=== PATIENT | male | born 1950 | race Caucasian/White ===

== ENCOUNTER 2016-12-18 11:29 | Inpatient (IN) | payer MEDICARE, BC ==
[~2016-12-18] VITALS: Ht 177.8 cm; Wt 111.0 kg
[2016-12-18] VITALS (12 sets, daily range): BP systolic 111–136; BP diastolic 50–98
[~2016-12-18 11:29] MED LIST: ALLO100T64 PO; EPINEPHRINE SYRINGE 0.1 MG/ML, 10ML ONE; GABA100C PO; HYDR-3241 PO; HYDR25TA6 PO; LISI5TAB7 PO; METF10002 PO; SITA50TA PO
[2016-12-18] MEDS ORDERED: PROPOFOL 100 ML IV ONE ×2 (11:32→18:50)
[2016-12-18] MEDS ORDERED: MIDAZOLAM 1 MG/ML, 5ML ONE ×2 (11:38→13:17)
[2016-12-18] MEDS ORDERED: KETAMINE 10 MG/ML, 20ML ONE (11:41)
[2016-12-18 11:55] LABS: ABG COLLECTION SITE RIGHT RADIAL; COLLATERAL CIRCULATION TESTING NORMAL
[2016-12-18] MEDS ORDERED: FENTANYL PF 2,500 MCG in SODIUM CHLORIDE 0.9% 200 ML IV PRN ×2 (12:00→18:00)
[2016-12-18] MEDS ORDERED: PROPOFOL 100 ML IV PRN (12:00)
[2016-12-18] MEDS ORDERED: KETAMINE 10 MG/ML, 20ML IV ONE (12:00)
[2016-12-18] MEDS ORDERED: PLEASE ENTER HEIGHT AND WEIGHT MC SCH (12:00)
[2016-12-18] MEDS ORDERED: SODIUM CHLORIDE FLUSH 10ML SYR IVF ONE (12:00)
[2016-12-18] MEDS ORDERED: NOREPINEPHRINE 4 MG in SODIUM CHLORIDE 0.9% 246 ML IV PRN (12:00)
[2016-12-18 12:06] LABS: BLOOD UREA NITROGEN 57 mg/dL (7-18)
[2016-12-18] MEDS ORDERED: FENTANYL PF 100 MCG/2ML ONE (12:13)
[2016-12-18] MEDS ORDERED: EPINEPHRINE 1 MG/ML, 1ML IVPush ONE ×3 (12:30→13:00)
[2016-12-18] MEDS ORDERED: BACITRACIN 50,000 UNIT ONE (12:34)
[2016-12-18] MEDS ORDERED: PROTAMINE SULFATE 10 MG/ML, 5ML ONE (12:34)
[2016-12-18] MEDS ORDERED: THROMBIN 20,000 UNIT VIAL TP ONE (12:34)
[2016-12-18] MEDS ORDERED: BUPIVACAINE/PF-EPI 0.5% 1:200K ONE (12:34)
[2016-12-18] MEDS ORDERED: HEPARIN 1,000 UNITS/ML, 10ML ONE ×2 (12:34→13:16)
[2016-12-18] MEDS ORDERED: PAPAVERINE 30 MG/ML, 2ML ONE (12:35)
[2016-12-18 12:42] LABS: DIFF TOTAL CELLS COUNTED 100 CELL DIFF
[2016-12-18 12:43] LABS: ANISOCYTOSIS 1+; MICROCYTOSIS 1+; VERIFY COUNTS? YES
[2016-12-18 12:45] LABS: OVALOCYTES 1+; POLYCHROMASIA 1+
[2016-12-18 12:46] LABS: LARGE PLATELETS 1+
[2016-12-18] MEDS: PHENYLEPHRINE 10 MG in SODIUM CHLORIDE 0.9% 249 ML IV PRN ×2 (12:48→18:21)
[2016-12-18] MEDS ORDERED: NOREPINEPHRINE 1 MG/ML, 4ML ONE ×2 (12:53→18:04)
[2016-12-18] MEDS ORDERED: ALBUMIN HUMAN 5% 500 ML ONE (12:53)
[2016-12-18] MEDS ORDERED: FENTANYL PF 250 MCG/5ML ONE (13:21)
[2016-12-18] MEDS ORDERED: FENTANYL PF 100 MCG/2ML IVPush PRN (13:30)
[2016-12-18] MEDS ORDERED: MIDAZOLAM 1 MG/ML, 5ML IVPush ONE (13:30)
[2016-12-18] MEDS ORDERED: FURO-93 PO (13:31)
[2016-12-18] MEDS ORDERED: FENO160T PO (13:31)
[2016-12-18] MEDS ORDERED: ALLO300T PO (13:31)
[2016-12-18] MEDS ORDERED: LISI-170 PO (13:31)
[2016-12-18] MEDS ORDERED: HYDR-3138 PO (13:31)
[2016-12-18] MEDS ORDERED: ASPI-496 PO (13:31)
[2016-12-18] MEDS ORDERED: IPRA12.9 INH (13:31)
[2016-12-18] MEDS ORDERED: INSULIN SINGLE DOSE, ER SQ-INSULIN ONE (13:44)
[2016-12-18] MEDS ORDERED: SODIUM CHLORIDE 0.9% 1,000ML IVBOLUS ONE (14:00)
[2016-12-18] MEDS ORDERED: LABETALOL 5MG/ML 40ML VIAL IVPush PRN (15:00)
[2016-12-18] MEDS: CEFAZOLIN PMX 2GM/50ML 50 ML IVPB SCH ×2 (16:20→23:09)
[2016-12-18] MEDS: LACTATED RINGERS 1,000 ML IV SCH (16:21)
[2016-12-18] MEDS: FAMOTIDINE 20 MG/2 ML IVPush SCH (16:22)
[2016-12-18] MEDS ORDERED: PHENYLEPHRINE 20 MG in SODIUM CHLORIDE 0.9% 248 ML IV PRN (22:03)
[2016-12-18] MEDS ORDERED: SENNA/DOCUSATE TABLET NG PRN (22:30)
[2016-12-18] MEDS ORDERED: PHARMACY MAY ADJ FOR RENAL FX MC SCH (22:30)
[2016-12-18] MEDS ORDERED: SENNOSIDES 8.8 MG/5 ML ORAL SOL NG PRN (22:30)
[2016-12-18] MEDS ORDERED: DEXTROSE 4 GM TAB.CHEW PO PRN (22:30)
[2016-12-18] MEDS ORDERED: GLUCAGON 1 MG IM PRN (22:30)
[2016-12-18] MEDS ORDERED: BISACODYL 10 MG SUPP PR PRN (22:30)
[2016-12-18] MEDS ORDERED: LACTULOSE 20 GM/30 ML UDC NG PRN (22:30)
[2016-12-18] MEDS ORDERED: DEXTROSE 50%, 50ML SYRINGE IVPush PRN (22:30)
[2016-12-18] MEDS ORDERED: LIDOCAINE-MPF 1%, 2ML ENDO PRN (22:30)
[2016-12-18] MEDS: INSULIN ASPART 100 UNITS/ML, PEN SQ-INSULIN SCH (23:08)
[2016-12-18] MEDS: PROPOFOL 100 ML IV PRN (23:17)
[2016-12-19] MEDS: PROPOFOL 100 ML IV PRN (03:05)
[2016-12-19 04:00] VITALS: BP 116/64
[2016-12-19 05:32] LABS: ABG COLLECTION SITE ARTERIAL LINE
[2016-12-19 05:55] LABS: BLOOD UREA NITROGEN 45 mg/dL (7-18)
[2016-12-19] MEDS: SODIUM CHLORIDE FLUSH 10ML SYR IVF SCH ×2 (09:00→22:01)
[2016-12-19] MEDS: INSULIN ASPART 100 UNITS/ML, PEN SQ-INSULIN SCH ×4 (10:13→22:01)
[2016-12-19] MEDS: FAMOTIDINE 20 MG/2 ML IVPush SCH (10:14)
[2016-12-19] MEDS: LACTATED RINGERS 1,000 ML IV SCH (12:59)
[2016-12-19] MEDS: HYDROcodone/APAP 5/325 TABLET PO PRN (17:39)
[2016-12-19 17:40] VITALS: BP 131/85
[2016-12-19 20:27] VITALS: BP 92/47
[2016-12-19 21:29] VITALS: BP 112/75
[2016-12-19] MEDS ORDERED: ACET1TAB64 PO (21:33)
[2016-12-19] MEDS ORDERED: APAP/CODEINE 300/30MG TABLET PO ONE (22:00)
[2016-12-20 00:07] VITALS: BP 122/87
[2016-12-20] MEDS: HYDROcodone/APAP 5/325 TABLET PO PRN ×2 (03:13→08:08)
[2016-12-20 04:04] VITALS: BP 119/74
[2016-12-20 05:52] LABS: BLOOD UREA NITROGEN 35 mg/dL (7-18)
[2016-12-20 07:39] VITALS: BP 121/80
[2016-12-20] MEDS: FAMOTIDINE 20 MG/2 ML IVPush SCH (08:08)
[2016-12-20] MEDS: INSULIN ASPART 100 UNITS/ML, PEN SQ-INSULIN SCH ×2 (08:09→11:52)
[2016-12-20] MEDS: SODIUM CHLORIDE FLUSH 10ML SYR IVF SCH (08:10)
[2016-12-20] MEDS ORDERED: APAP/CODEINE 300/30MG TABLET PO PRN (12:00)
[2016-12-20 14:46] VITALS: BP 121/71
== END 2016-12-20 14:50 | disposition home or self-care (01) | DRG 907 ==
LOC: ED 11:36 → EDIP 11:44 → CCU 14:48 → 4NOR 12-19 17:17
PROVIDERS: ADMIT Hospitalist; ATTEND Hospitalist
PROC: 0JC40ZZ Extirpation of Matter from Right Neck Subcutaneous Tissue and Fascia, Open Approach (ICD-10-PCS; 2016-12-18)
PROC: 02HV33Z Insertion of Infusion Device into Superior Vena Cava, Percutaneous Approach (ICD-10-PCS; 2016-12-18)
PROC: 30233N1 Transfusion of Nonautologous Red Blood Cells into Peripheral Vein, Percutaneous Approach (ICD-10-PCS; 2016-12-18)
PROC: 5A1945Z Respiratory Ventilation, 24-96 Consecutive Hours (ICD-10-PCS; 2016-12-18)
PROC: 0BH17EZ Insertion of Endotracheal Airway into Trachea, Via Natural or Artificial Opening (ICD-10-PCS; 2016-12-18)
PROC: 03Q Upper Arteries, Repair (ICD-10-PCS; principal; 2016-12-18 12:00)
DX: I97.621 Postprocedural hematoma of a circulatory system organ or structure following other procedure (principal); E43 Unspecified severe protein-calorie malnutrition; I13.0 Hypertensive heart and chronic kidney disease with heart failure and stage 1 through stage 4 chronic kidney disease, or unspecified chronic kidney disease; D62 Acute posthemorrhagic anemia; R57.9 Shock, unspecified; I65.22 Occlusion and stenosis of left carotid artery; I25.10 Atherosclerotic heart disease of native coronary artery without angina pectoris; J44.9 Chronic obstructive pulmonary disease, unspecified; E11.51 Type 2 diabetes mellitus with diabetic peripheral angiopathy without gangrene; Y83.8 Other surgical procedures as the cause of abnormal reaction of the patient, or of later complication, without mention of misadventure at the time of the procedure; K21.9 Gastro-esophageal reflux disease without esophagitis; I50.9 Heart failure, unspecified; E66.9 Obesity, unspecified; E11.22 Type 2 diabetes mellitus with diabetic chronic kidney disease; N18.9 Chronic kidney disease, unspecified; E78.5 Hyperlipidemia, unspecified; N20.0 Calculus of kidney; Z87.442 Personal history of urinary calculi; Z87.891 Personal history of nicotine dependence; Z79.82 Long term (current) use of aspirin; Z95.1 Presence of aortocoronary bypass graft; Z79.899 Other long term (current) drug therapy; Z68.35 Body mass index [BMI] 35.0-35.9, adult; Y92.9 Unspecified place or not applicable
CPT/HCPCS: 36415; 36430; 36556; 36600; 71010; 80047; 80048; 82040; 82803; 82962; 83735; 85014; 85018; 85025; 85610; 85730; 86850; 86900; 86923; 87070; 87081; 87205; 93005; 94002; 94003; 94150; 96361; 96374; 96375; 96376; 99292; C1729; J0171; J0690; J1644; J1815; J2250; J2704; J2720; J3010; P9045; J2370; J2440; J7030; J7050; J7120; P9016; S0028

== ENCOUNTER 2017-02-15 05:18 | Inpatient (IN) | payer MEDICARE, BC ==
[~2017-02-15] VITALS: Ht 172.7 cm; Wt 112.1 kg
[~2017-02-15 05:18] MED LIST changes: +ACET1TAB64 PO; +ALLO300T PO; +ASPI-496 PO; -EPINEPHRINE SYRINGE 0.1 MG/ML, 10ML ONE; +FENO160T PO; +FURO-93 PO; +GLIP10TA13 PO; +HYDR-3138 PO; +INSULIN; +IPRA12.9 INH; +LISI-170 PO
[2017-02-15] MEDS ORDERED: LACTATED RINGERS 1,000 ML IV SCH (06:03)
[2017-02-15] MEDS ORDERED: SODIUM CHLORIDE 0.9% 1,000 ML IV SCH (06:03)
[2017-02-15] MEDS ORDERED: GEMF600T3 PO (06:05)
[2017-02-15] MEDS ORDERED: DIGOXIN PO (06:13)
[2017-02-15] MEDS ORDERED: TRIA1TAB3 PO (06:13)
[2017-02-15] MEDS ORDERED: CARV3.122 PO (06:13)
[2017-02-15] MEDS ORDERED: LISI-167 PO (06:13)
[2017-02-15] MEDS ORDERED: EZET10TA3 PO (06:13)
[2017-02-15] MEDS ORDERED: HYDR25TA6 PO (06:13)
[2017-02-15] MEDS ORDERED: FURO20TA3 PO (06:13)
[2017-02-15 06:17] VITALS: BP 159/81
[2017-02-15] MEDS ORDERED: LIDOCAINE 1%, 2ML SQ PRN (06:30)
[2017-02-15] MEDS ORDERED: LIDOCAINE 1%, 2ML ONE (06:33)
[2017-02-15] MEDS ORDERED: BACITRACIN 50,000 UNIT ONE (06:34)
[2017-02-15] MEDS ORDERED: THROMBIN 20,000 UNIT VIAL TP ONE (06:34)
[2017-02-15] MEDS ORDERED: HEPARIN 1,000 UNITS/ML, 10ML ONE (06:49)
[2017-02-15] MEDS ORDERED: PROTAMINE SULFATE 10 MG/ML, 5ML ONE (06:49)
[2017-02-15] MEDS ORDERED: INSULIN REGULAR 100 UNITS/ML, 3ML VIAL SQ-INSULIN ONE (07:00)
[2017-02-15] MEDS ORDERED: INSULIN SINGLE DOSE, ER SQ-INSULIN ONE (07:03)
[2017-02-15] MEDS ORDERED: MIDAZOLAM 1 MG/ML, 2ML ONE (07:07)
[2017-02-15] MEDS ORDERED: KETAMINE 10 MG/ML, 20ML ONE (07:07)
[2017-02-15] MEDS ORDERED: FENTANYL PF 250 MCG/5ML ONE (07:07)
[2017-02-22] MEDS ORDERED: HEPARIN 1,000 UNITS/ML, 10ML ONE ×2 (12:55→15:29)
[2017-02-22] MEDS ORDERED: PROTAMINE SULFATE 10 MG/ML, 5ML ONE (12:55)
[2017-02-22] MEDS ORDERED: THROMBIN 20,000 UNIT VIAL TP ONE (12:56)
[2017-02-22] MEDS ORDERED: BACITRACIN 50,000 UNIT ONE (12:56)
[2017-02-22] MEDS ORDERED: MIDAZOLAM 1 MG/ML, 2ML ONE ×2 (13:13→17:37)
[2017-02-22] MEDS ORDERED: FENTANYL PF 250 MCG/5ML ONE (13:13)
[2017-02-22] MEDS ORDERED: MEPERIDINE/PF 25MG/0.5ML IVPush PRN (13:30)
[2017-02-22] MEDS ORDERED: FENTANYL PF 100 MCG/2ML IV PRN (13:30)
[2017-02-22] MEDS ORDERED: ACETAMINOPHEN 325 MG TABLET PO PRN (13:30)
[2017-02-22] MEDS ORDERED: OXYcodone 5 MG/5 ML ORAL.SOL UDC PO PRN (13:30)
[2017-02-22] MEDS ORDERED: hydrALAzine 20 MG/ML, 1ML IV PRN (13:30)
[2017-02-22] MEDS ORDERED: LABETALOL 5MG/ML, 20ML IV PRN (13:30)
[2017-02-22] MEDS ORDERED: PROMETHAZINE 25 MG/ML, 1ML IV PRN (13:30)
[2017-02-22] MEDS ORDERED: ONDANSETRON 2MG/ML, 2ML IVPush PRN ×2 (13:30→17:30)
[2017-02-22] MEDS ORDERED: ALBUTEROL SULFATE 2.5 MG/3 ML NPPB PRN (13:30)
[2017-02-22] MEDS ORDERED: CEFAZOLIN 1,000 MG ONE (13:36)
[2017-02-22] MEDS ORDERED: ALBUTEROL SULFATE 200 PUFFS/8.5 GR INH ONE (13:36)
[2017-02-22] MEDS ORDERED: DEXAMETHASONE 4 MG/ML, 1ML ONE (13:36)
[2017-02-22] MEDS ORDERED: ROCURONIUM 10 MG/ML ONE (13:36)
[2017-02-22] MEDS ORDERED: ONDANSETRON 2MG/ML, 2ML ONE (13:36)
[2017-02-22] MEDS ORDERED: SUCCINYLCHOLINE 20 MG/ML, 10ML ONE (13:36)
[2017-02-22] MEDS ORDERED: PHENYLEPHRINE 10 MG/ML ONE (13:36)
[2017-02-22] MEDS ORDERED: PROPOFOL 10 MG/ML, 20ML ONE (13:36)
[2017-02-22 13:44] LABS: ASPARTATE AMINO TRANSFERASE 11 U/L (15-37); BLOOD UREA NITROGEN 60 mg/dL (7-18)
[2017-02-22] MEDS ORDERED: ACETAMINOPHEN 650 MG/20.3 ML UDC ONE (17:37)
[2017-02-22] MEDS ORDERED: HYDROmorphone 2 MG/ML, 1ML ONE (17:37)
[2017-02-22] MEDS ORDERED: OXYcodone 5 MG/5 ML ORAL.SOL UDC ONE (17:38)
[2017-02-22] MEDS: LACTATED RINGERS 1,000 ML IV SCH ×2 (17:40→22:50)
[2017-02-22] MEDS: HYDROmorphone 1 MG/ML, 1ML IV PRN ×4 (17:42→18:39)
[2017-02-22] MEDS: MIDAZOLAM 1 MG/ML, 2ML IV PRN ×2 (17:50→18:20)
[2017-02-22 19:35] VITALS: BP 137/83
[2017-02-22] MEDS ORDERED: EZETIMIBE 10 MG TABLET PO SCH (21:00)
[2017-02-22] MEDS: OXYcodone/APAP 7.5/325MG TABLET PO PRN (21:20)
[2017-02-22] MEDS: CARVEDILOL 3.125 MG TABLET PO SCH (21:52)
[2017-02-22] MEDS: DOCUSATE 100 MG CAPSULE PO SCH (21:52)
[2017-02-22] MEDS: CEFAZOLIN PMX 2GM/50ML 50 ML IVPB SCH (21:53)
[2017-02-22] MEDS: INSULIN ASPART 100 UNITS/ML, PEN SQ-INSULIN SCH (22:42)
[2017-02-22 23:20] VITALS: BP 170/91
[2017-02-23] MEDS: OXYcodone/APAP 7.5/325MG TABLET PO PRN ×3 (01:23→09:39)
[2017-02-23 03:31] VITALS: BP 145/74
[2017-02-23 05:35] LABS: BLOOD UREA NITROGEN 62 mg/dL (7-18)
[2017-02-23] MEDS: CEFAZOLIN PMX 2GM/50ML 50 ML IVPB SCH (05:52)
[2017-02-23] MEDS ORDERED: ENOXAPARIN 40 MG/0.4 ML SQ SCH (08:00)
[2017-02-23] MEDS ORDERED: CLOPIDOGREL 75 MG TABLET PO SCH (09:00)
[2017-02-23] MEDS ORDERED: GEMFIBROZIL 600 MG TABLET PO SCH (09:00)
[2017-02-23] MEDS ORDERED: ASPIRIN 81 MG TABLET EC PO SCH (09:00)
[2017-02-23] MEDS ORDERED: TRIAMTERENE-HCTZ 37.5/25 MG TABLET PO SCH (09:00)
[2017-02-23] MEDS ORDERED: DIGOXIN 0.125 MG TABLET PO SCH (09:00)
[2017-02-23] MEDS ORDERED: LISINOPRIL 10 MG TABLET PO SCH (09:00)
[2017-02-23] MEDS ORDERED: ALLOPURINOL 300 MG TABLET PO SCH (09:00)
[2017-02-23 09:09] VITALS: BP 173/92
[2017-02-23] MEDS: CARVEDILOL 3.125 MG TABLET PO SCH (09:36)
[2017-02-23] MEDS: DOCUSATE 100 MG CAPSULE PO SCH (09:36)
[2017-02-23] MEDS: INSULIN ASPART 100 UNITS/ML, PEN SQ-INSULIN SCH ×2 (09:38→11:37)
[2017-02-23 11:49] VITALS: BP 140/72
[2017-02-23] MEDS ORDERED: OXYC1TAB8 PO (12:16)
== END 2017-02-23 12:26 | disposition home or self-care (01) | DRG 252 ==
LOC: ORIP 05:18 → UNDOADMIN 05:18 → EDSTATUS 07:30 → ORIP 02-22 11:25 → 4NOR 02-22 20:14 → DCLOUNGE 02-23 12:03
PROVIDERS: ADMIT Surgery; ATTEND Surgery
PROC: 04UL07Z Supplement Left Femoral Artery with Autologous Tissue Substitute, Open Approach (ICD-10-PCS; 2017-02-22)
PROC: 06BQ0ZZ Excision of Left Saphenous Vein, Open Approach (ICD-10-PCS; 2017-02-22)
PROC: B41G1ZZ Fluoroscopy of Left Lower Extremity Arteries using Low Osmolar Contrast (ICD-10-PCS; 2017-02-22)
PROC: 04CL0ZZ Extirpation of Matter from Left Femoral Artery, Open Approach (ICD-10-PCS; 2017-02-22)
PROC: 047J3EZ Dilation of Left External Iliac Artery with Two Intraluminal Devices, Percutaneous Approach (ICD-10-PCS; principal; 2017-02-22 13:00)
DX: I70.212 Atherosclerosis of native arteries of extremities with intermittent claudication, left leg (principal); E43 Unspecified severe protein-calorie malnutrition; E11.51 Type 2 diabetes mellitus with diabetic peripheral angiopathy without gangrene; G47.00 Insomnia, unspecified; I25.10 Atherosclerotic heart disease of native coronary artery without angina pectoris; I70.8 Atherosclerosis of other arteries; I99.8 Other disorder of circulatory system; M10.9 Gout, unspecified; M19.90 Unspecified osteoarthritis, unspecified site
CPT/HCPCS: 36415; 74000; 75710; 80048; 80053; 82040; 82962; 85025; 86850; 86900; C1725; C1729; J0690; J1100; J1170; J1644; J1815; J2250; J2405; J2704; J2720; J3010; J3490; C1751; C1769; C1876; J0330; J2370; J7030; J7120

== ENCOUNTER 2017-05-16 00:14 | Inpatient (IN) | payer MEDICARE, BC ==
[~2017-05-16] VITALS: Ht 172.7 cm; Wt 107.3 kg
[~2017-05-16 00:14] MED LIST changes: +CARV3.122 PO; +DIGOXIN PO; +EZET10TA18 PO; +FURO20TA3 PO; +GEMF600T3 PO; -HYDR-3138 PO; +HYDR-3237 PO; +LISI-167 PO; +OXYC1TAB8 PO; +TRIA1TAB3 PO
[2017-05-16 01:18] LABS: HEMATOCRIT 31.1 % (39.2-51.8); HEMOGLOBIN 9.9 g/dL (13.7-18.0); WHITE BLOOD COUNT 8.2 x10^3/uL (3.4-10)
[2017-05-16 01:23] LABS: BLOOD UREA NITROGEN 53 mg/dL (7-18)
[2017-05-16 01:26] LABS: ASPARTATE AMINO TRANSFERASE 15 U/L (15-37)
[2017-05-16] MEDS ORDERED: ONDANSETRON 2MG/ML, 2ML IVPush PRN ×2 (02:00→02:30)
[2017-05-16] MEDS ORDERED: hydrALAzine 20 MG/ML, 1ML IVPush PRN (02:30)
[2017-05-16] MEDS ORDERED: morphine SULFATE 10 MG/ML, 1ML IVPush PRN (02:30)
[2017-05-16] MEDS ORDERED: OXYcodone/APAP 7.5/325MG TABLET PO PRN (02:30)
[2017-05-16] MEDS ORDERED: ACETAMINOPHEN 325 MG TABLET PO PRN (02:30)
[2017-05-16] MEDS: SODIUM CHLORIDE 0.9% 1,000 ML IV SCH ×2 (03:40→15:08)
[2017-05-16 03:45] VITALS: BP 155/78
[2017-05-16 06:21] LABS: HEMATOCRIT 29.7 % (39.2-51.8); HEMOGLOBIN 9.4 g/dL (13.7-18.0); WHITE BLOOD COUNT 6.4 x10^3/uL (3.4-10)
[2017-05-16 06:23] LABS: BLOOD UREA NITROGEN 50 mg/dL (7-18)
[2017-05-16 08:09] VITALS: BP 102/74
[2017-05-16] MEDS ORDERED: CARVEDILOL 3.125 MG TABLET PO SCH (09:00)
[2017-05-16] MEDS ORDERED: LISINOPRIL 10 MG TABLET PO SCH (09:00)
[2017-05-16] MEDS: ALLOPURINOL 300 MG TABLET PO SCH (09:48)
[2017-05-16] MEDS: GEMFIBROZIL 600 MG TABLET PO SCH (09:48)
[2017-05-16] MEDS ORDERED: OXYcodone/APAP 7.5/325MG TABLET ONE (12:31)
[2017-05-16] MEDS: OXYcodone/APAP 7.5/325MG TABLET PO PRN ×2 (12:34→18:27)
[2017-05-16 14:06] VITALS: BP 121/74
[2017-05-16 20:32] VITALS: BP 153/76
[2017-05-16] MEDS ORDERED: EZETIMIBE 10 MG TABLET PO SCH (21:00)
[2017-05-16] MEDS: MOVIPREP POWDER 1 PREP KIT PO SCH (21:03)
[2017-05-17] MEDS: SODIUM CHLORIDE 0.9% 1,000 ML IV SCH ×2 (02:00→11:00)
[2017-05-17 02:01] VITALS: BP 147/82
[2017-05-17] MEDS: OXYcodone/APAP 7.5/325MG TABLET PO PRN ×2 (02:01→08:18)
[2017-05-17] MEDS: MOVIPREP POWDER 1 PREP KIT PO SCH (05:16)
[2017-05-17] MEDS: GEMFIBROZIL 600 MG TABLET PO SCH (08:18)
[2017-05-17] MEDS: ALLOPURINOL 300 MG TABLET PO SCH (08:18)
[2017-05-17 08:31] VITALS: BP 156/79
[2017-05-17] MEDS ORDERED: FENTANYL PF 100 MCG/2ML ONE (08:40)
[2017-05-17] MEDS ORDERED: MIDAZOLAM 1 MG/ML, 5ML ONE (08:40)
[2017-05-17] MEDS ORDERED: LORazepam 2 MG/ML, 1ML ONE (11:41)
== END 2017-05-17 13:46 | disposition home or self-care (01) | DRG 377 ==
LOC: ED 00:33 → EDIP 01:44 → SUATTDRO 01:57 → 5SO 03:34
PROVIDERS: ADMIT Hospitalist; ATTEND Hospitalist
PROC: 0DBL8ZZ Excision of Transverse Colon, Via Natural or Artificial Opening Endoscopic (ICD-10-PCS; 2017-05-17)
PROC: 0DBH8ZZ Excision of Cecum, Via Natural or Artificial Opening Endoscopic (ICD-10-PCS; principal; 2017-05-17 09:00)
DX: K92.1 Melena (principal); E43 Unspecified severe protein-calorie malnutrition; E11.51 Type 2 diabetes mellitus with diabetic peripheral angiopathy without gangrene; E11.22 Type 2 diabetes mellitus with diabetic chronic kidney disease; I95.9 Hypotension, unspecified; F11.20 Opioid dependence, uncomplicated; N18.4 Chronic kidney disease, stage 4 (severe); D62 Acute posthemorrhagic anemia; K63.5 Polyp of colon; D12.0 Benign neoplasm of cecum; Z68.36 Body mass index [BMI] 36.0-36.9, adult; E78.5 Hyperlipidemia, unspecified; E66.9 Obesity, unspecified; D63.8 Anemia in other chronic diseases classified elsewhere; G89.29 Other chronic pain; I12.9 Hypertensive chronic kidney disease with stage 1 through stage 4 chronic kidney disease, or unspecified chronic kidney disease; I25.10 Atherosclerotic heart disease of native coronary artery without angina pectoris; K64.4 Residual hemorrhoidal skin tags; K21.9 Gastro-esophageal reflux disease without esophagitis; K57.90 Diverticulosis of intestine, part unspecified, without perforation or abscess without bleeding; Z79.4 Long term (current) use of insulin; Z79.82 Long term (current) use of aspirin; Z82.49 Family history of ischemic heart disease and other diseases of the circulatory system; Z87.891 Personal history of nicotine dependence; Z83.3 Family history of diabetes mellitus; Z95.1 Presence of aortocoronary bypass graft; Z88.8 Allergy status to other drugs, medicaments and biological substances
CPT/HCPCS: 36415; 80048; 80053; 82962; 85025; 86850; 86900; 88305; 93005; 99285; J2250; J3010; J7030

== ENCOUNTER 2018-05-28 11:44 | Inpatient (IN) | payer MEDICARE, BC ==
[~2018-05-28] VITALS: Ht 172.7 cm; Wt 108.0 kg
[~2018-05-28 11:44] MED LIST changes: -GEMF600T3 PO; +GEMF600T4 PO
[2018-05-28 14:20] VITALS: BP 156/81
[2018-05-28] MEDS ORDERED: GUAIFENESIN/COD200MG-20MG/10ML LIQUID PO PRN (15:30)
[2018-05-28] MEDS ORDERED: FUROSEMIDE 40 MG TABLET PO PRN (15:30)
[2018-05-28] MEDS ORDERED: morphine SULFATE 10 MG/ML, 1ML IVPush PRN (15:30)
[2018-05-28] MEDS ORDERED: ACETAMINOPHEN 325 MG TABLET PO PRN (15:30)
[2018-05-28] MEDS ORDERED: hydrALAzine 20 MG/ML, 1ML IVPush PRN (15:30)
[2018-05-28] MEDS ORDERED: DEXTROSE 4 GM TAB.CHEW PO PRN (15:30)
[2018-05-28] MEDS ORDERED: ONDANSETRON 2MG/ML, 2ML IVPush PRN (15:30)
[2018-05-28] MEDS ORDERED: GLUCAGON 1 MG IM PRN (15:30)
[2018-05-28] MEDS ORDERED: DOCUSATE 100 MG CAPSULE PO PRN (15:30)
[2018-05-28] MEDS ORDERED: DEXTROSE 50%, 50ML SYRINGE IVPush PRN (15:30)
[2018-05-28] MEDS ORDERED: FURO-93 PO (15:48)
[2018-05-28] MEDS ORDERED: GLIM2TAB2 PO (15:48)
[2018-05-28] MEDS ORDERED: INSU100V8 SQ (15:48)
[2018-05-28] MEDS ORDERED: VARE1TAB21 PO (15:50)
[2018-05-28 16:39] LABS: BASOPHILS # (AUTO) 0.02 x10^3/uL (0-0.1); BASOPHILS % (AUTO) 0 % (0-1); EOSINOPHILS # (AUTO) 0.22 x10^3/uL (0-0.4); EOSINOPHILS % (AUTO) 4 % (1-7); LYMPHOCYTES # (AUTO) 1.34 x10^3/uL (1-3.4); LYMPHOCYTES % (AUTO) 24 % (22-44); MD NO; MEAN CORPUSCULAR HEMOGLOBIN 31.8 pg (27.5-34.5); MEAN CORPUSCULAR HGB CONC 32.3 g/dL (33.2-36.2); MEAN CORPUSCULAR VOLUME 98.4 fL (81-97); MEAN PLATELET VOLUME 10.3 fL (7.4-10.4); MONOCYTES # (AUTO) 0.57 x10^3/uL (0.2-0.8); MONOCYTES % (AUTO) 10 % (2-9); NEUTROPHILS # (AUTO) 3.35 x10^3/uL (1.8-6.8); NEUTROPHILS % (AUTO) 61 % (42-75); PLATELET COUNT 136 x10^3/uL (130-400); RED CELL DISTRIBUTION WIDTH 18.5 % (9.4-14.8)
[2018-05-28 16:50] LABS: ANION GAP 11 mmol/L (5-15); CALCIUM 8.2 mg/dL (8.5-10.1); CHLORIDE 104 mmol/L (98-107); CREATININE 2.14 mg/dL (0.7-1.3)
[2018-05-28] MEDS: HEPARIN 5,000 UNITS/ML, 1ML SQ SCH (18:09)
[2018-05-28] MEDS: INSULIN LISPRO 100 UNITS/ML, PEN SQ-INSULIN SCH ×2 (18:09→21:04)
[2018-05-28] MEDS: FUROSEMIDE 20 MG TABLET PO SCH (18:09)
[2018-05-28] MEDS: OXYcodone IR 5MG TABLET PO PRN (18:09)
[2018-05-28 20:02] VITALS: BP 161/94
[2018-05-28] MEDS ORDERED: INSULIN GLARGINE 100 UNITS/ML, PEN SQ-INSULIN SCH (21:00)
[2018-05-28] MEDS: GLIMEPIRIDE 1 MG TABLET PO SCH (21:02)
[2018-05-28] MEDS: CARVEDILOL 3.125 MG TABLET PO SCH (21:02)
[2018-05-28] MEDS: INSULIN GLARGINE 100 UNITS/ML, PEN SQ-INSULIN SCH (21:03)
[2018-05-28] MEDS: EZETIMIBE 10 MG TABLET PO SCH (21:08)
[2018-05-28] MEDS: SODIUM CHLORIDE FLUSH 10ML SYR IVF SCH (21:08)
[2018-05-29 02:20] VITALS: BP_SYST 171; BP_SYST 196; BP_DIAS 107; BP_DIAS 98
[2018-05-29] MEDS: HEPARIN 5,000 UNITS/ML, 1ML SQ SCH ×3 (02:32→18:11)
[2018-05-29 05:10] LABS: BASOPHILS # (AUTO) 0.02 x10^3/uL (0-0.1); BASOPHILS % (AUTO) 0 % (0-1); EOSINOPHILS # (AUTO) 0.25 x10^3/uL (0-0.4); EOSINOPHILS % (AUTO) 5 % (1-7); LYMPHOCYTES # (AUTO) 1.21 x10^3/uL (1-3.4); LYMPHOCYTES % (AUTO) 22 % (22-44); MD NO; MEAN CORPUSCULAR HEMOGLOBIN 31.6 pg (27.5-34.5); MEAN CORPUSCULAR HGB CONC 32.3 g/dL (33.2-36.2); MEAN CORPUSCULAR VOLUME 97.8 fL (81-97); MEAN PLATELET VOLUME 9.8 fL (7.4-10.4); MONOCYTES # (AUTO) 0.53 x10^3/uL (0.2-0.8); MONOCYTES % (AUTO) 10 % (2-9); NEUTROPHILS # (AUTO) 3.41 x10^3/uL (1.8-6.8); NEUTROPHILS % (AUTO) 63 % (42-75); PLATELET COUNT 148 x10^3/uL (130-400); RED BLOOD COUNT 5.18 x10^6/uL (4.38-5.82); RED CELL DISTRIBUTION WIDTH 18.2 % (9.4-14.8)
[2018-05-29 05:17] LABS: ANION GAP 11 mmol/L (5-15); CALCIUM 8.7 mg/dL (8.5-10.1); CHLORIDE 104 mmol/L (98-107)
[2018-05-29 05:19] LABS: CREATININE 1.99 mg/dL (0.7-1.3)
[2018-05-29] MEDS: OXYcodone IR 5MG TABLET PO PRN ×2 (05:20→15:23)
[2018-05-29] MEDS: ASPIRIN 81 MG TABLET EC PO SCH (05:20)
[2018-05-29] MEDS: INSULIN LISPRO 100 UNITS/ML, PEN SQ-INSULIN SCH ×4 (07:00→21:13)
[2018-05-29 08:16] VITALS: BP 183/88
[2018-05-29] MEDS: ALLOPURINOL 300 MG TABLET PO SCH (08:29)
[2018-05-29] MEDS: ALUMINUM/MAG/SIMETHICONE 30 ML UDC PO PRN ×2 (08:29→15:23)
[2018-05-29] MEDS: GLIMEPIRIDE 1 MG TABLET PO SCH ×2 (08:29→21:13)
[2018-05-29] MEDS: GEMFIBROZIL 600 MG TABLET PO SCH (08:30)
[2018-05-29] MEDS: DIGOXIN 0.125 MG TABLET PO SCH (08:31)
[2018-05-29] MEDS: CARVEDILOL 3.125 MG TABLET PO SCH ×2 (08:31→21:12)
[2018-05-29] MEDS: SODIUM CHLORIDE FLUSH 10ML SYR IVF SCH ×2 (08:31→21:14)
[2018-05-29] MEDS ORDERED: LISINOPRIL 10 MG TABLET PO SCH (09:00)
[2018-05-29] MEDS ORDERED: ASPIRIN 81 MG TABLET CHEW PO SCH (09:00)
[2018-05-29 13:25] VITALS: BP 160/89
[2018-05-29] MEDS: FUROSEMIDE 20 MG TABLET PO SCH (18:11)
[2018-05-29 19:32] VITALS: BP 136/74
[2018-05-29] MEDS: EZETIMIBE 10 MG TABLET PO SCH (21:12)
[2018-05-29] MEDS: INSULIN GLARGINE 100 UNITS/ML, PEN SQ-INSULIN SCH (21:13)
[2018-05-30 02:57] VITALS: BP 149/87
[2018-05-30] MEDS: OXYcodone IR 5MG TABLET PO PRN (03:11)
[2018-05-30] MEDS: HEPARIN 5,000 UNITS/ML, 1ML SQ SCH ×2 (03:12→11:00)
[2018-05-30] MEDS: ASPIRIN 81 MG TABLET EC PO SCH (05:28)
[2018-05-30 05:56] LABS: ANION GAP 8 mmol/L (5-15); CALCIUM 8.6 mg/dL (8.5-10.1); CHLORIDE 104 mmol/L (98-107); CREATININE 1.99 mg/dL (0.7-1.3)
[2018-05-30] MEDS: INSULIN LISPRO 100 UNITS/ML, PEN SQ-INSULIN SCH ×2 (07:00→11:00)
[2018-05-30 07:37] VITALS: BP 164/92
[2018-05-30] MEDS: SODIUM CHLORIDE FLUSH 10ML SYR IVF SCH (08:47)
[2018-05-30] MEDS: GLIMEPIRIDE 1 MG TABLET PO SCH (08:48)
[2018-05-30] MEDS: CARVEDILOL 3.125 MG TABLET PO SCH (08:48)
[2018-05-30] MEDS: ALLOPURINOL 300 MG TABLET PO SCH (08:48)
[2018-05-30] MEDS: DIGOXIN 0.125 MG TABLET PO SCH (08:48)
[2018-05-30] MEDS: GEMFIBROZIL 600 MG TABLET PO SCH (08:48)
[2018-05-30] MEDS ORDERED: FENTANYL PF 100 MCG/2ML ONE (10:26)
[2018-05-30] MEDS ORDERED: MIDAZOLAM 1 MG/ML, 5ML ONE (10:26)
[2018-05-30] MEDS ORDERED: PANT40TA3 PO (12:55)
== END 2018-05-30 15:13 | disposition home or self-care (01) | DRG 327 ==
LOC: 4WST 13:39 → DCLOUNGE 05-30 14:45
PROVIDERS: ADMIT Internal Medicine; ATTEND Internal Medicine
PROC: 0D968ZZ Drainage of Stomach, Via Natural or Artificial Opening Endoscopic (ICD-10-PCS; 2018-05-30)
PROC: 0D988ZZ Drainage of Small Intestine, Via Natural or Artificial Opening Endoscopic (ICD-10-PCS; 2018-05-30)
PROC: 0DB98ZX Excision of Duodenum, Via Natural or Artificial Opening Endoscopic, Diagnostic (ICD-10-PCS; 2018-05-30)
PROC: 0DB68ZX Excision of Stomach, Via Natural or Artificial Opening Endoscopic, Diagnostic (ICD-10-PCS; principal; 2018-05-30 10:30)
DX: K25.9 Gastric ulcer, unspecified as acute or chronic, without hemorrhage or perforation (principal); J96.11 Chronic respiratory failure with hypoxia; N18.4 Chronic kidney disease, stage 4 (severe); I50.22 Chronic systolic (congestive) heart failure; I13.0 Hypertensive heart and chronic kidney disease with heart failure and stage 1 through stage 4 chronic kidney disease, or unspecified chronic kidney disease; I77.4 Celiac artery compression syndrome; K55.1 Chronic vascular disorders of intestine; D63.1 Anemia in chronic kidney disease; E11.21 Type 2 diabetes mellitus with diabetic nephropathy; E11.22 Type 2 diabetes mellitus with diabetic chronic kidney disease; E11.40 Type 2 diabetes mellitus with diabetic neuropathy, unspecified; E11.51 Type 2 diabetes mellitus with diabetic peripheral angiopathy without gangrene; F17.200 Nicotine dependence, unspecified, uncomplicated; I25.10 Atherosclerotic heart disease of native coronary artery without angina pectoris; I70.0 Atherosclerosis of aorta; E78.5 Hyperlipidemia, unspecified; I70.8 Atherosclerosis of other arteries; I44.0 Atrioventricular block, first degree; I45.4 Nonspecific intraventricular block; K21.0 Gastro-esophageal reflux disease with esophagitis; K22.4 Dyskinesia of esophagus; K29.80 Duodenitis without bleeding; K31.7 Polyp of stomach and duodenum; Z79.82 Long term (current) use of aspirin; Z82.49 Family history of ischemic heart disease and other diseases of the circulatory system; Z95.5 Presence of coronary angioplasty implant and graft; Z95.1 Presence of aortocoronary bypass graft; Z79.4 Long term (current) use of insulin; Z88.6 Allergy status to analgesic agent; Z99.81 Dependence on supplemental oxygen
CPT/HCPCS: 36415; 80048; 82962; 83735; 84100; 85025; 88305; G0378; J1644; J2250; J3010; J0360; J1815

== ENCOUNTER 2018-12-07 11:13 | Inpatient (IN) | payer MEDICARE, BC ==
[~2018-12-07] VITALS: Ht 172.7 cm; Wt 105.2 kg
[~2018-12-07 11:13] MED LIST changes: -GEMF600T4 PO; +GEMF600T8 PO; +GLIM2TAB2 PO; +INSU100V8 SQ; +PANT40TA3 PO; +VARE1TAB21 PO
[2018-12-07 15:41] VITALS: BP 159/78
[2018-12-07] MEDS ORDERED: HYDR-3307 PO (16:00)
[2018-12-07] MEDS ORDERED: INSU100C SQ-INSULIN (16:00)
[2018-12-07] MEDS ORDERED: INSU100V8 SQ (16:00)
[2018-12-07] MEDS ORDERED: DIGO125T PO (16:00)
[2018-12-07] MEDS ORDERED: SEVE800T8 PO (16:00)
[2018-12-07] MEDS ORDERED: GABA300C10 PO (16:00)
[2018-12-07] MEDS ORDERED: FUROSEMIDE 100 MG/10 ML IV ONE (18:00)
[2018-12-07 18:23] LABS: ALANINE AMINOTRANSFERASE 14 U/L (12-78); ALBUMIN 3.1 g/dL (3.4-5.0); ANION GAP 7 mmol/L (5-15); BASOPHILS # (AUTO) 0.01 x10^3/uL (0-0.1); BASOPHILS % (AUTO) 0 % (0-1); CALCIUM 8.2 mg/dL (8.5-10.1); CHLORIDE 107 mmol/L (98-107); EOSINOPHILS # (AUTO) 0.19 x10^3/uL (0-0.4); EOSINOPHILS % (AUTO) 4 % (1-7); LYMPHOCYTES # (AUTO) 1.05 x10^3/uL (1-3.4); LYMPHOCYTES % (AUTO) 22 % (22-44); MD NO; MEAN CORPUSCULAR HEMOGLOBIN 33.2 pg (27.5-34.5); MEAN CORPUSCULAR HGB CONC 32.6 g/dL (33.2-36.2); MEAN CORPUSCULAR VOLUME 101.9 fL (81-97); MEAN PLATELET VOLUME 10.4 fL (7.4-10.4); MONOCYTES # (AUTO) 0.39 x10^3/uL (0.2-0.8); MONOCYTES % (AUTO) 8 % (2-9); NEUTROPHILS # (AUTO) 3.22 x10^3/uL (1.8-6.8); NEUTROPHILS % (AUTO) 66 % (42-75); PLATELET COUNT 107 x10^3/uL (130-400); RED BLOOD COUNT 4.22 x10^6/uL (4.38-5.82); RED CELL DISTRIBUTION WIDTH 17.5 % (9.4-14.8)
[2018-12-07] MEDS: HYDROcodone/APAP 10/325 MG TABLET PO PRN (18:30)
[2018-12-07 18:37] LABS: ALKALINE PHOSPHATASE 123 U/L (45-117); BILIRUBIN,TOTAL 0.3 mg/dL (0.2-1.0); TOTAL PROTEIN 7.7 g/dL (6.4-8.2)
[2018-12-07 19:32] VITALS: BP 161/83
[2018-12-07 20:41] VITALS: BP 132/68
[2018-12-07] MEDS: INSULIN LISPRO 100 UNITS/ML, PEN SQ-INSULIN SCH (20:42)
[2018-12-07] MEDS ORDERED: CARVEDILOL 12.5 MG TABLET PO SCH (21:00)
[2018-12-07 22:00] LABS: MICROSCOPIC NOT IND
[2018-12-07 22:21] LABS: CULTURE INDICATED? NO
[2018-12-08] MEDS: HYDROcodone/APAP 10/325 MG TABLET PO PRN (00:33)
[2018-12-08 00:50] VITALS: BP 156/79
[2018-12-08 05:47] LABS: BASOPHILS # (AUTO) 0.02 x10^3/uL (0-0.1); BASOPHILS % (AUTO) 0 % (0-1); EOSINOPHILS # (AUTO) 0.19 x10^3/uL (0-0.4); EOSINOPHILS % (AUTO) 4 % (1-7); LYMPHOCYTES # (AUTO) 1.21 x10^3/uL (1-3.4); LYMPHOCYTES % (AUTO) 26 % (22-44); MD NO; MEAN CORPUSCULAR HEMOGLOBIN 33.2 pg (27.5-34.5); MEAN CORPUSCULAR HGB CONC 32.9 g/dL (33.2-36.2); MEAN CORPUSCULAR VOLUME 100.9 fL (81-97); MEAN PLATELET VOLUME 10.9 fL (7.4-10.4); MONOCYTES # (AUTO) 0.44 x10^3/uL (0.2-0.8); MONOCYTES % (AUTO) 9 % (2-9); NEUTROPHILS # (AUTO) 2.87 x10^3/uL (1.8-6.8); NEUTROPHILS % (AUTO) 61 % (42-75); PLATELET COUNT 107 x10^3/uL (130-400); RED BLOOD COUNT 4.17 x10^6/uL (4.38-5.82); RED CELL DISTRIBUTION WIDTH 17.6 % (9.4-14.8)
[2018-12-08 05:52] LABS: ALANINE AMINOTRANSFERASE 13 U/L (12-78); ANION GAP 8 mmol/L (5-15); CALCIUM 8.1 mg/dL (8.5-10.1); CHLORIDE 106 mmol/L (98-107)
[2018-12-08 05:53] LABS: ALKALINE PHOSPHATASE 126 U/L (45-117); BILIRUBIN,TOTAL 0.3 mg/dL (0.2-1.0); TOTAL PROTEIN 7.5 g/dL (6.4-8.2)
[2018-12-08] MEDS: INSULIN LISPRO 100 UNITS/ML, PEN SQ-INSULIN SCH ×4 (07:00→21:00)
[2018-12-08 07:16] VITALS: BP 147/80
[2018-12-08] MEDS ORDERED: LIDOCAINE 1%, 20ML ONE (08:19)
[2018-12-08] MEDS ORDERED: FENTANYL PF 100 MCG/2ML ONE (08:55)
[2018-12-08] MEDS ORDERED: NALOXONE 1 MG/ML, 2ML ONE (08:56)
[2018-12-08] MEDS ORDERED: MIDAZOLAM 1 MG/ML, 5ML ONE (08:56)
[2018-12-08] MEDS ORDERED: FLUMAZENIL 0.1 MG/1 ML, 5ML ONE (08:56)
[2018-12-08] MEDS ORDERED: CEFAZOLIN PMX 1GM/50ML 50 ML IV ONE (09:30)
[2018-12-08] MEDS: SEVELAMER CARBONATE 800MG TAB PO SCH ×3 (11:02→19:46)
[2018-12-08] MEDS: CARVEDILOL 6.25 MG TABLET PO SCH ×2 (12:05→19:47)
[2018-12-08] MEDS: ALLOPURINOL 100 MG TABLET PO SCH (12:05)
[2018-12-08 12:35] VITALS: BP 161/89
[2018-12-08] MEDS ORDERED: LIDOCAINE-MPF 1%, 5ML ONE (13:03)
[2018-12-08 19:33] VITALS: BP 173/90
[2018-12-08 21:10] VITALS: BP 155/83
[2018-12-09 01:12] VITALS: BP 174/92
[2018-12-09] MEDS: HYDROcodone/APAP 10/325 MG TABLET PO PRN ×3 (01:16→17:33)
[2018-12-09 02:18] VITALS: BP 151/74
[2018-12-09 06:27] LABS: BASOPHILS # (AUTO) 0.01 x10^3/uL (0-0.1); BASOPHILS % (AUTO) 0 % (0-1); EOSINOPHILS # (AUTO) 0.11 x10^3/uL (0-0.4); EOSINOPHILS % (AUTO) 2 % (1-7); LYMPHOCYTES % (AUTO) 27 % (22-44); MD NO; MEAN CORPUSCULAR HEMOGLOBIN 33.4 pg (27.5-34.5); MEAN CORPUSCULAR HGB CONC 33.1 g/dL (33.2-36.2); MEAN CORPUSCULAR VOLUME 100.8 fL (81-97); MEAN PLATELET VOLUME 10.9 fL (7.4-10.4); MONOCYTES # (AUTO) 0.41 x10^3/uL (0.2-0.8); MONOCYTES % (AUTO) 7 % (2-9); NEUTROPHILS # (AUTO) 3.56 x10^3/uL (1.8-6.8); NEUTROPHILS % (AUTO) 64 % (42-75); PLATELET COUNT 111 x10^3/uL (130-400); RED BLOOD COUNT 4.14 x10^6/uL (4.38-5.82)
[2018-12-09 06:37] LABS: ANION GAP 10 mmol/L (5-15); CALCIUM 8.5 mg/dL (8.5-10.1); CHLORIDE 106 mmol/L (98-107)
[2018-12-09 06:59] VITALS: BP 160/78
[2018-12-09] MEDS: INSULIN LISPRO 100 UNITS/ML, PEN SQ-INSULIN SCH ×4 (07:00→22:30)
[2018-12-09] MEDS: SEVELAMER CARBONATE 800MG TAB PO SCH ×3 (07:00→17:33)
[2018-12-09] MEDS: CARVEDILOL 6.25 MG TABLET PO SCH ×2 (09:00→22:30)
[2018-12-09 15:21] VITALS: BP 148/56
[2018-12-09] MEDS ORDERED: SODIUM CHLORIDE NASAL SPRAY 45ML BOTTLE NAS PRN (15:30)
[2018-12-09] MEDS: ONDANSETRON 2MG/ML, 2ML IVPush PRN (17:04)
[2018-12-09] MEDS: ALLOPURINOL 100 MG TABLET PO SCH (17:33)
[2018-12-09] MEDS: HEPARIN 5,000 UNITS/ML, 1ML SQ SCH (17:34)
[2018-12-09 19:00] VITALS: BP 153/65
[2018-12-09 22:29] VITALS: BP 148/63
[2018-12-09] MEDS: INSULIN GLARGINE 100 UNITS/ML, PEN SQ-INSULIN SCH (22:30)
[2018-12-10 04:55] VITALS: BP 166/83
[2018-12-10 05:08] LABS: CHLORIDE 104 mmol/L (98-107); MEAN CORPUSCULAR HEMOGLOBIN 32.8 pg (27.5-34.5); MEAN CORPUSCULAR HGB CONC 32.6 g/dL (33.2-36.2); MEAN CORPUSCULAR VOLUME 100.5 fL (81-97); RED CELL DISTRIBUTION WIDTH 17.3 % (9.4-14.8)
[2018-12-10 05:39] LABS: ANION GAP 6 mmol/L (5-15); CALCIUM 8.7 mg/dL (8.5-10.1); CREATININE 2.68 mg/dL (0.7-1.3)
[2018-12-10 05:57] LABS: BASOPHILS # (AUTO) 0.01 x10^3/uL (0-0.1); BASOPHILS % (AUTO) 0 % (0-1); EOSINOPHILS # (AUTO) 0.15 x10^3/uL (0-0.4); EOSINOPHILS % (AUTO) 3 % (1-7); LYMPHOCYTES # (AUTO) 1.96 x10^3/uL (1-3.4); LYMPHOCYTES % (AUTO) 35 % (22-44); MD SCAN; MEAN PLATELET VOLUME 11.7 fL (7.4-10.4); MONOCYTES % (AUTO) 11 % (2-9); NEUTROPHILS # (AUTO) 2.83 x10^3/uL (1.8-6.8); NEUTROPHILS % (AUTO) 51 % (42-75); PLATELET COUNT 95 x10^3/uL (130-400)
[2018-12-10] MEDS: HEPARIN 5,000 UNITS/ML, 1ML SQ SCH (06:00)
[2018-12-10] MEDS: SEVELAMER CARBONATE 800MG TAB PO SCH ×3 (07:00→18:11)
[2018-12-10] MEDS: INSULIN LISPRO 100 UNITS/ML, PEN SQ-INSULIN SCH ×4 (07:00→21:10)
[2018-12-10] MEDS: HYDROcodone/APAP 10/325 MG TABLET PO PRN ×3 (08:14→20:39)
[2018-12-10] MEDS ORDERED: LIDOCAINE-MPF 1%, 5ML ONE (08:43)
[2018-12-10] MEDS: CARVEDILOL 6.25 MG TABLET PO SCH ×2 (09:49→20:39)
[2018-12-10] MEDS: ALLOPURINOL 100 MG TABLET PO SCH (09:49)
[2018-12-10 14:09] VITALS: BP 167/80
[2018-12-10 20:05] VITALS: BP 165/84
[2018-12-10] MEDS: INSULIN GLARGINE 100 UNITS/ML, PEN SQ-INSULIN SCH (21:11)
[2018-12-11 02:02] VITALS: BP 170/95
[2018-12-11 02:05] VITALS: BP 153/73
[2018-12-11] MEDS: HYDROcodone/APAP 10/325 MG TABLET PO PRN ×3 (02:39→21:11)
[2018-12-11 05:32] LABS: ANION GAP 5 mmol/L (5-15); CALCIUM 8.7 mg/dL (8.5-10.1); CHLORIDE 106 mmol/L (98-107); CREATININE 2.14 mg/dL (0.7-1.3)
[2018-12-11] MEDS: INSULIN LISPRO 100 UNITS/ML, PEN SQ-INSULIN SCH ×4 (07:00→21:11)
[2018-12-11] MEDS: SEVELAMER CARBONATE 800MG TAB PO SCH ×3 (07:41→16:04)
[2018-12-11] MEDS: ALLOPURINOL 100 MG TABLET PO SCH (07:41)
[2018-12-11 07:55] VITALS: BP 171/79
[2018-12-11] MEDS: AMLODIPINE 5 MG TABLET PO SCH (08:28)
[2018-12-11] MEDS: CARVEDILOL 6.25 MG TABLET PO SCH ×2 (08:28→21:11)
[2018-12-11 20:00] VITALS: BP 162/88
[2018-12-11 21:10] VITALS: BP 170/79
[2018-12-11] MEDS: INSULIN GLARGINE 100 UNITS/ML, PEN SQ-INSULIN SCH (21:11)
[2018-12-12 04:05] VITALS: BP 164/82
[2018-12-12 05:32] LABS: MEAN CORPUSCULAR HEMOGLOBIN 32.8 pg (27.5-34.5); MEAN CORPUSCULAR HGB CONC 32.7 g/dL (33.2-36.2); MEAN CORPUSCULAR VOLUME 100.4 fL (81-97); MEAN PLATELET VOLUME 10.2 fL (7.4-10.4); PLATELET COUNT 94 x10^3/uL (130-400); RED BLOOD COUNT 4.35 x10^6/uL (4.38-5.82); RED CELL DISTRIBUTION WIDTH 17.6 % (9.4-14.8)
[2018-12-12 05:41] LABS: ANION GAP 7 mmol/L (5-15); CALCIUM 9.1 mg/dL (8.5-10.1); CHLORIDE 105 mmol/L (98-107); CREATININE 2.12 mg/dL (0.7-1.3)
[2018-12-12 06:19] LABS: BASOPHILS # (AUTO) 0.02 x10^3/uL (0-0.1); BASOPHILS % (AUTO) 0 % (0-1); EOSINOPHILS # (AUTO) 0.22 x10^3/uL (0-0.4); EOSINOPHILS % (AUTO) 4 % (1-7); LYMPHOCYTES % (AUTO) 27 % (22-44); MD SCAN; MONOCYTES # (AUTO) 0.48 x10^3/uL (0.2-0.8); MONOCYTES % (AUTO) 9 % (2-9); NEUTROPHILS # (AUTO) 3.17 x10^3/uL (1.8-6.8); NEUTROPHILS % (AUTO) 60 % (42-75)
[2018-12-12] MEDS: INSULIN LISPRO 100 UNITS/ML, PEN SQ-INSULIN SCH ×4 (07:00→20:50)
[2018-12-12] MEDS: SEVELAMER CARBONATE 800MG TAB PO SCH ×3 (07:00→16:00)
[2018-12-12 08:10] VITALS: BP 156/96
[2018-12-12] MEDS: CARVEDILOL 6.25 MG TABLET PO SCH ×3 (09:00→20:50)
[2018-12-12 12:10] VITALS: BP 168/81
[2018-12-12] MEDS: HYDROcodone/APAP 10/325 MG TABLET PO PRN ×2 (12:31→20:49)
[2018-12-12] MEDS: AMLODIPINE 5 MG TABLET PO SCH (12:31)
[2018-12-12] MEDS: ALLOPURINOL 100 MG TABLET PO SCH (12:31)
[2018-12-12] MEDS ORDERED: BUPIVACAINE/PF 0.5% ONE (13:25)
[2018-12-12] MEDS ORDERED: PROTAMINE SULFATE 10 MG/ML, 5ML ONE (13:25)
[2018-12-12] MEDS ORDERED: THROMBIN 5,000 UNIT VIAL TP ONE (13:26)
[2018-12-12] MEDS ORDERED: HEPARIN 1,000 UNITS/ML, 10ML ONE (13:26)
[2018-12-12 13:30] VITALS: BP 175/93
[2018-12-12] MEDS ORDERED: GLYCOPYRROLATE 0.2MG/1ML, 5ML ONE (13:36)
[2018-12-12] MEDS ORDERED: ROCURONIUM 10MG/ML,5ML ONE (13:36)
[2018-12-12] MEDS ORDERED: NEOSTIGMINE 1 MG/ML, 10ML ONE (13:36)
[2018-12-12] MEDS ORDERED: FENTANYL PF 100 MCG/2ML ONE (13:36)
[2018-12-12] MEDS ORDERED: MIDAZOLAM 1 MG/ML, 2ML ONE (13:36)
[2018-12-12] MEDS ORDERED: SUCCINYLCHOLINE 20 MG/ML, 10ML ONE (13:36)
[2018-12-12] MEDS ORDERED: ONDANSETRON 2MG/ML, 2ML ONE (13:36)
[2018-12-12] MEDS ORDERED: DEXAMETHASONE 4 MG/ML, 1ML ONE (13:36)
[2018-12-12] MEDS ORDERED: CEFAZOLIN 1,000 MG ONE (13:36)
[2018-12-12] MEDS ORDERED: PROPOFOL 10 MG/ML, 20ML ONE (13:36)
[2018-12-12] MEDS ORDERED: LABETALOL 5MG/ML, 20ML IV PRN (15:00)
[2018-12-12] MEDS ORDERED: HYDROmorphone 2 MG/ML, 1ML IVPush PRN (15:00)
[2018-12-12] MEDS ORDERED: OXYcodone 5 MG/5 ML ORAL.SOL UDC PO PRN (15:00)
[2018-12-12] MEDS ORDERED: ALBUTEROL SULFATE 2.5 MG/3 ML NPPB PRN (15:00)
[2018-12-12] MEDS ORDERED: FENTANYL PF 100 MCG/2ML IV PRN (15:00)
[2018-12-12] MEDS ORDERED: hydrALAzine 20 MG/ML, 1ML IV PRN (15:00)
[2018-12-12] MEDS ORDERED: HALOPERIDOL 5 MG/ML IV PRN (15:00)
[2018-12-12] MEDS ORDERED: ACETAMINOPHEN 325 MG TABLET PO PRN (15:00)
[2018-12-12 19:39] VITALS: BP 145/76
[2018-12-12] MEDS: ONDANSETRON 2MG/ML, 2ML IVPush PRN (20:49)
[2018-12-12] MEDS: INSULIN GLARGINE 100 UNITS/ML, PEN SQ-INSULIN SCH (20:50)
[2018-12-13 01:23] VITALS: BP 145/81
[2018-12-13] MEDS: ONDANSETRON 2MG/ML, 2ML IVPush PRN (06:23)
[2018-12-13] MEDS: INSULIN LISPRO 100 UNITS/ML, PEN SQ-INSULIN SCH ×3 (07:00→17:54)
[2018-12-13] MEDS ORDERED: DOCUSATE 100 MG CAPSULE PO PRN (08:30)
[2018-12-13] MEDS: SEVELAMER CARBONATE 800MG TAB PO SCH ×3 (09:03→17:46)
[2018-12-13] MEDS: ALLOPURINOL 100 MG TABLET PO SCH (09:03)
[2018-12-13] MEDS: CARVEDILOL 6.25 MG TABLET PO SCH (09:03)
[2018-12-13] MEDS: AMLODIPINE 5 MG TABLET PO SCH (09:03)
[2018-12-13 09:06] LABS: ANION GAP 8 mmol/L (5-15); CALCIUM 9.1 mg/dL (8.5-10.1); CHLORIDE 104 mmol/L (98-107); CREATININE 2.33 mg/dL (0.7-1.3)
[2018-12-13 09:35] LABS: BASOPHILS # (AUTO) 0.02 x10^3/uL (0-0.1); BASOPHILS % (AUTO) 0 % (0-1); EOSINOPHILS # (AUTO) 0.17 x10^3/uL (0-0.4); EOSINOPHILS % (AUTO) 2 % (1-7); LYMPHOCYTES # (AUTO) 1.36 x10^3/uL (1-3.4); LYMPHOCYTES % (AUTO) 19 % (22-44); MD NO; MEAN CORPUSCULAR HGB CONC 33.1 g/dL (33.2-36.2); MEAN CORPUSCULAR VOLUME 99.8 fL (81-97); MEAN PLATELET VOLUME 10.4 fL (7.4-10.4); MONOCYTES # (AUTO) 0.57 x10^3/uL (0.2-0.8); MONOCYTES % (AUTO) 8 % (2-9); NEUTROPHILS # (AUTO) 4.95 x10^3/uL (1.8-6.8); NEUTROPHILS % (AUTO) 70 % (42-75); PLATELET COUNT 100 x10^3/uL (130-400); RED BLOOD COUNT 4.69 x10^6/uL (4.38-5.82); RED CELL DISTRIBUTION WIDTH 17.9 % (9.4-14.8)
[2018-12-13 13:40] VITALS: BP 152/90
[2018-12-13] MEDS ORDERED: AMLO-150 PO (14:46)
[2018-12-13] MEDS ORDERED: INSU100I11 SQ-INSULIN (14:46)
[2018-12-13] MEDS ORDERED: ALLO100T30 PO (14:46)
== END 2018-12-13 20:10 | disposition home or self-care (01) | DRG 673 ==
LOC: 5SO 15:28 → 4WST 12-10 13:27
PROVIDERS: ADMIT Hospitalist; ATTEND Hospitalist
PROC: 03170ZD Bypass Right Brachial Artery to Upper Arm Vein, Open Approach (ICD-10-PCS; principal; 2018-12-08)
PROC: 0W993ZZ Drainage of Right Pleural Cavity, Percutaneous Approach (ICD-10-PCS; 2018-12-08)
PROC: 02HV33Z Insertion of Infusion Device into Superior Vena Cava, Percutaneous Approach (ICD-10-PCS; 2018-12-08)
PROC: B5181ZA Fluoroscopy of Superior Vena Cava using Low Osmolar Contrast, Guidance (ICD-10-PCS; 2018-12-08)
PROC: B548ZZA Ultrasonography of Superior Vena Cava, Guidance (ICD-10-PCS; 2018-12-08)
PROC: 5A1D70Z Performance of Urinary Filtration, Intermittent, Less than 6 Hours Per Day (ICD-10-PCS; 2018-12-08)
PROC: 5A1D70Z Performance of Urinary Filtration, Intermittent, Less than 6 Hours Per Day (ICD-10-PCS; 2018-12-09)
PROC: 5A1D70Z Performance of Urinary Filtration, Intermittent, Less than 6 Hours Per Day (ICD-10-PCS; 2018-12-10)
PROC: 5A1D70Z Performance of Urinary Filtration, Intermittent, Less than 6 Hours Per Day (ICD-10-PCS; 2018-12-12)
DX: N17.9 Acute kidney failure, unspecified (principal); I50.43 Acute on chronic combined systolic (congestive) and diastolic (congestive) heart failure; J96.11 Chronic respiratory failure with hypoxia; K55.1 Chronic vascular disorders of intestine; I13.2 Hypertensive heart and chronic kidney disease with heart failure and with stage 5 chronic kidney disease, or end stage renal disease; Z66 Do not resuscitate; D63.8 Anemia in other chronic diseases classified elsewhere; D69.6 Thrombocytopenia, unspecified; E11.22 Type 2 diabetes mellitus with diabetic chronic kidney disease; E11.42 Type 2 diabetes mellitus with diabetic polyneuropathy; E11.51 Type 2 diabetes mellitus with diabetic peripheral angiopathy without gangrene; E11.65 Type 2 diabetes mellitus with hyperglycemia; E66.9 Obesity, unspecified; E78.5 Hyperlipidemia, unspecified; E87.5 Hyperkalemia; F41.9 Anxiety disorder, unspecified; G89.4 Chronic pain syndrome; I25.10 Atherosclerotic heart disease of native coronary artery without angina pectoris; N18.6 End stage renal disease; K21.9 Gastro-esophageal reflux disease without esophagitis; K22.4 Dyskinesia of esophagus; M10.9 Gout, unspecified; M19.90 Unspecified osteoarthritis, unspecified site; Z79.4 Long term (current) use of insulin; Z87.01 Personal history of pneumonia (recurrent); Z87.11 Personal history of peptic ulcer disease; Z87.891 Personal history of nicotine dependence; Z95.1 Presence of aortocoronary bypass graft; Z99.2 Dependence on renal dialysis; Z88.8 Allergy status to other drugs, medicaments and biological substances; Z68.35 Body mass index [BMI] 35.0-35.9, adult
CPT/HCPCS: 32555; 36415; 36558; 71045; 76937; 77001; 80048; 80053; 80074; 80162; 81003; 82607; 82728; 82962; 83540; 83550; 83735; 83970; 84100; 84443; 85025; 86480; 86706; 93005; 93306; 99156; 99157; C1894; G0378; J0690; J1100; J1644; J1940; J2250; J2405; J2704; J2710; J2720; J3010; C1750; G0365; J0330; J1642; J1815; J2310